=== PATIENT | male | born 1980 | race Caucasian/White ===

== ENCOUNTER → 2017-04-13 | Outpatient (CLI) | payer BC ==
[~2017-04-13] MED LIST: ATV/1 PO; CYCL10TA6 PO; MELA5CAP PO; ONDA8TAB12 PO; RANI300T PO; TRAM-10 PO
--- NOTE | 2017-04-13 09:16 | DIAGNOSTIC IMAGING REPORT ---
GI SERIES W/AIR ROUTINE CLINICAL HISTORY: 29-year-old male with history of dysphasia, sticking sensation in the upper esophagus when swallowing for 2 months, globus sensation, recent EGD normal. TECHNIQUE: A standard air contrast upper GI series was performed. Spot images of the esophagus and stomach were obtained in multiple obliquities both upright and prone. COMPARISON: None. FINDINGS: The patient swallowed barium without difficulty. The esophagus is structurally normal without evidence of intrinsic or extrinsic mass. The esophageal mucosal pattern is normal. No gastroesophageal reflux was observed. The gastroesophageal junction distends normally. The stomach is normal in configuration and demonstrates normal distensibility. No evidence of hiatal hernia. No mass or ulceration is identified. There was no evidence of gastritis. The duodenal bulb and sweep are unremarkable. Fluoroscopy dosage (mGy): Not available. Fluoroscopy time: 2.2 minutes. Number of fluoroscopic spot images: 21. IMPRESSION: Normal upper gastrointestinal fluoroscopic evaluation. Electronically signed by: Edwar Montoya M.D. 04/13/2017 9:14 AM Dictated Date/Time: 04/13/2017 9:13 AM
== END | disposition home or self-care (01) ==
LOC: C.RAD 08:41
PROVIDERS: ATTEND Physician Assistant
DX: R13.10 Dysphagia, unspecified (principal)

== ENCOUNTER 2024-08-09 05:51 | Observation (INO) ==
--- NOTE | 2024-07-13 13:28 | Anesthesiology Consultation ---
Date of Service July 13, 2024 Assessment & Plan (1) Encounter for pre-operative examination: Plan - Case discussed in detail with Dr. Sanchez who advised patient is acceptable to proceed, not requiring additional evaluation. - cardiology office visit 10/26/23: "...congenitally bicuspid aortic valve...feeling relatively well from a cardiac standpoint...palpitations. Zio monitoring in September 2022 with multiple event markers correlating with normal rhythm, sinus tachycardia, and sensed atrial ectopy only...resting echocardiography this summer. SBE prophylaxis..." Chart Review Chart Review: Acceptable Risk for Surgery and Patient seen in Pre Admission Testing Teaching & Discussion Pre-Anesthesia Teaching/Discussion Notes: Instructed NPO after midnight before surgery, except medications with 15 cc of water. Medication instructions provided according to the PAT guidelines. History Surgery Operation Date: 08/09/24 11:45 Proposed Procedures p C5-C6, C6-C7 Cervical Artificial Disc Arthroplasty - Rajesh Ha MD Height/Weight Height: 6 ft Weight: 80.3 kg Allergies Allergy/AdvReac Type Severity Reaction Status Date / Time adhesive Allergy Intermediate Blisters/Ra Verified 07/04/24 11:52 sh SULFA Allergy Severe Anaphylaxis Uncoded 07/04/24 11:52 Medications Home Medications Medication Instructions Recorded Confirmed Last Taken No Known Home Medications 07/04/24 07/04/24 Unknown Past Medical History Medical History (Updated 07/13/24 @ 14:34 by Tammie Kemp PA-C) Bicuspid aortic valve [facility] (possibly switching to [facility]) - Yearly Echo Bilateral carpal tunnel syndrome Bone marrow disorder Pt denies - possibly in 2013 d/t illness [facility]. Patient has never heard anything. Cervical radiculopathy Full ROM Degenerative disc disease, cervical Hx of chest pain entered into EMR 2013, no current issues at this time Rosacea Thyroid nodule Tobacco use disorder Patient denies h/o stroke, seizures, heart attack, heart failure, DM, HTN, blood clots/DVTs or blood transfusions. Exercise / Class Metabolic Activity III < 4 Walking/Shop/Light housework (denies chest discomfort or shortness of breath with usual activities) Past Surgical History Surgical History H/O arthroscopy of shoulder Right shoulder Hx of biopsy Thyroid - Benign Hx of colonoscopy Hx of esophagogastroduodenoscopy Hx of wisdom tooth extraction Past Anesthesia History No Hx of Anesthesia Complications and No Family Hx of Anesthesia Complications History of PONV No Hx of PONV and No Hx of Motion Sickness Social History Smoking Status: Never smoker Do You Dip or Chew Tobacco: No Hx Alcohol Use: Yes alcohol intake frequency: other (several beers once a month with friends) Hx Substance Use: Yes substance use type: marijuana Substance Use Type Other:: Smoke/Vape - Advised Last Used Substance: Unknown Review of Systems Patient denies chest pain, shortness of breath, dyspnea on exertion, snoring, witnessed apneas, reflux, fever, chills, cough, wheezing, or palpitations. Physical Exam Vital Signs Vitals BP 121/79 P 63 TEMP 98.5 SP02 98% on RA RESP 18 Physical Patient resting comfortably in chair in no acute distress, alert and oriented, responding appropriately throughout visit Full cervical extension range of motion without pain TMD 3.5 finger breadths Mallampati Score 3 Dentition: several chipped teeth; denies loose teeth, caps/crowns, implants or bridges Lungs: normal respiratory effort. Good air movement, clear throughout to auscultation, no adventitious breath sounds Cardiac: regular rate and rhythm, no murmurs noted Carotid arteries: negative bruit bilat Lab Results Anesthesia Preop Results Results Anesthesia Widget: WBC 7.82 K/ul (4.8-10.8) 07/13/24 Hgb 14.9 g/dl (14.0-18.0) 07/13/24 Hct 43.9 % (42.0-52.0) 07/13/24 Plt 267 K/uL (130-400) 07/13/24 Na 139 mmol/L (136-145) 07/13/24 K 4.3 mmol/L (3.5-5.1) 07/13/24 Cl 106 mmol/L (98-107) 07/13/24 CO2 30 mmol/L (21-32) 07/13/24 BUN 14 mg/dl (6-23) 07/13/24 Creat 0.91 mg/dl (0.6-1.4) 07/13/24 Glucose Level 76 mg/dl (70-99(Fasting)) 07/13/24 PT 10.5 Seconds (9.0-12.0) 07/13/24 PTT 32 Seconds (21-31) H 07/13/24 INR 1.0 (0.9-1.1) 07/13/24 Blood Type O Positive 07/13/24 Antibody Screen NEGATIVE 07/13/24 Testing Electrocardiogram Date: 01/20/24 NSR with sinus arrhythmia, rate 80 bpm Septal infarct, age undetermined No significant change vs 08/27/2013 EKG Chest X-Ray Date: 07/13/24 No acute chest disease. Echocardiogram Date: 01/06/24 EF 60-64% Normal LV wall motion Congenitally bicuspid aortic valve, open normally Mild aortic regurgitation with an eccentric jet directed towards the base of the anterior mitral valve leaflet Mild mitral regurgitation Mild tricuspid regurgitation Borderline enlarged proximal ascending thoracic aorta 3.9 cm Cervical Spine Date: 07/10/24 1. Mildly motion degraded exam with discogenic degeneration as above, not significantly changed compared to the 02/07/2024 study. 2. [id number] bilateral foraminal narrowing at C6-C7. 3. No high-grade central canal stenosis. 4. Normal signal of the cervical spinal cord. 5. Midline posterior fossa arachnoid cyst versus maricruz cisterna magna measures 5 cm.
[2024-08-09] MEDS: ACETAMINOPHEN 500 MG TAB PO SCH (06:30)
[2024-08-09] MEDS: GABAPENTIN 900 MG DOSE PO SCH (06:30)
[2024-08-09] MEDS: LR 15ML/HR IV SCH (06:31)
[2024-08-09] MEDS: LR 60ML/HR IV SCH (06:31)
[2024-08-09] MEDS ORDERED: MIDAZOLAM HCL 1 MG/ML 2ML VIAL ONE (07:02)
[2024-08-09] MEDS ORDERED: fentaNYL citrate PF 100 MCG/2 ML VIAL ONE (07:03)
--- NOTE | 2024-08-09 07:06 | History & Physical Bridge Note ---
Date of Service August 09, 2024 History & Physical Bridge Note I have examined the patient, reviewed the History & Physical and in the interval since the performance of the History & Physical I have noted the following changes of clinical significance: no changes noted
[2024-08-09] MEDS ORDERED: ROCURONIUM BROMIDE 10 MG/ML 5 ML VIAL IV ONE ×3 (07:10→09:38)
[2024-08-09] MEDS ORDERED: ONDANSETRON INJ 2 MG/ML 2 ML VIAL ONE (07:10)
[2024-08-09] MEDS ORDERED: LIDOCAINE 2% 2 ML VIAL/AMP(20MG/ML) INFIL ONE (07:10)
[2024-08-09] MEDS ORDERED: DEXAMETHASONE SOD INJ 4 MG/ML VIAL ONE (07:10)
[2024-08-09] MEDS ORDERED: PROPOFOL IV EMULSION 10 MG/ML 20 ML VIAL IV ONE ×2 (07:10)
[2024-08-09] MEDS ORDERED: HYDROmorphone INJ 1 MG/ML SYRINGE IV PRN (07:18)
[2024-08-09] MEDS ORDERED: ePHEDrine sulfate 50 MG/ML AMP IV PRN (07:18)
[2024-08-09] MEDS ORDERED: HYDROmorphone INJ 2 MG/ML SYR/VIAL IV PRN (07:18)
[2024-08-09] MEDS ORDERED: ATROPINE SULFATE 0.1 MG/ML 10ML SYR IV PRN (07:18)
[2024-08-09] MEDS ORDERED: fentaNYL citrate PF 100 MCG/2 ML VIAL IV PRN (07:18)
[2024-08-09] MEDS ORDERED: PROMETHAZINE HCL 6.25 MG in SODIUM CHLORIDE 0.9% 50 ML IV PRN (07:18)
[2024-08-09] MEDS ORDERED: PHENYLEPHRINE HCL 10 MG/ML VIAL ONE (07:18)
[2024-08-09] MEDS: ceFAZolin 2000MG 2,000 MG/15 ML SYR IV SCH (08:00)
[2024-08-09] MEDS ORDERED: REMIFENTANIL HCL 1 MG VIAL IV ONE (08:09)
[2024-08-09] MEDS ORDERED: HYDROmorphone INJ 2 MG/ML SYR/VIAL ONE (09:02)
[2024-08-09] MEDS ORDERED: GLYCOPYRROLATE 0.2 MG/ML VIAL ONE (10:57)
[2024-08-09] MEDS ORDERED: NEOSTIGMINE METHYLSULFATE 1 MG/ML 10ML VIAL ONE (10:57)
[2024-08-09] MEDS: THROMBIN 5000 UNITS KIT ONE (10:59)
[2024-08-09] MEDS: VANCOMYCIN HCL 1000MG/20ML VIAL ONE (10:59)
[2024-08-09] MEDS: GELATIN SPONGE 12-7MM ONE (10:59)
--- NOTE | 2024-08-09 11:07 | Post Operative Brief Note ---
PG Immediate Post Op with CF Date of Surgery August 09, 2024 Pre & Post Diagnosis Operation Date: 08/09/24 07:30 Pre-Op Diagnosis: Cervical Stenosis of Spine, Cervical Radiculopathy Post-Op Diagnosis: Cervical Stenosis of Spine, Cervical Radiculopathy I identified the patient and participated in the time-out.: Yes Procedure Operation Date: 08/09/24 07:30 Actual Procedures p C5-C6, C6-C7 Cervical Artificial Disc Arthroplasty(Not Applicable) - Rajesh Ha MD Surgeon Rajesh Ha MD Urgent Care Nurse Practitioner none Estimated Blood Loss 10 Findings Consistent with Post-Op Diagnosis Specimens Specimen Description: none Drains Feng Catheter
[2024-08-09] MEDS ORDERED: METOCLOPRAMIDE HCL INJ 5 MG/ML 2 ML VIAL IV PRN (11:31)
[2024-08-09] MEDS ORDERED: ONDANSETRON 4 MG OD TAB PO PRN (11:31)
[2024-08-09] MEDS ORDERED: bisacodyL 10 MG SUPP PR PRN (11:31)
[2024-08-09] MEDS ORDERED: dexAMETHasone 8 MG in SYRINGE 0 ML IV PRN (11:31)
[2024-08-09] MEDS ORDERED: diphenhydrAMINE Capsule 25 MG CAP PO PRN (11:31)
[2024-08-09] MEDS ORDERED: LORazepam 0.5 MG TAB PO PRN (11:31)
[2024-08-09] MEDS ORDERED: HYDROmorphone INJ 0.5 MG/0.5 ML SYR IV PRN (11:31)
[2024-08-09] MEDS ORDERED: DO NOT ADMINISTER FLU VACCINE PRN (11:31)
[2024-08-09] MEDS ORDERED: SOD PHOSPHATE/SOD BIPHOSPHATE ENEMA 132 ML BTL PR PRN (11:31)
[2024-08-09] MEDS ORDERED: NALOXONE HCL 0.4 MG/1 ML VIAL/CARP IV PRN (11:31)
[2024-08-09] MEDS ORDERED: MAGNESIUM HYDROXIDE SUSP 30 ML UDC PO PRN (11:31)
[2024-08-09] MEDS ORDERED: hydrOXYzine HCl 25 MG TAB PO PRN (11:31)
[2024-08-09] MEDS ORDERED: ALUMINUM/MAGNESIUM SUSP 30 ML UDC PO PRN (11:31)
[2024-08-09] MEDS ORDERED: FAMOTIDINE 20 MG TAB PO PRN (11:31)
[2024-08-09] MEDS ORDERED: DO NOT ADMINISTER PNEUMOCOCCAL VACCINE PRN (11:31)
[2024-08-09] MEDS ORDERED: RACEPINEPHRINE 2.25% NEBU SOLN 0.5 ML VIAL INH PRN (11:31)
[2024-08-09] MEDS ORDERED: ONDANSETRON INJ 2 MG/ML 2 ML VIAL IV PRN (11:31)
[2024-08-09] MEDS ORDERED: ACETAMINOPHEN 1,000 MG/100 ML VIAL IV PRN (11:31)
[2024-08-09] MEDS ORDERED: LORazepam 2 MG/1 ML VIAL IV PRN (11:31)
--- NOTE | 2024-08-09 11:54 | Fluoroscopy Report ---
FL cervical 2-3V CLINICAL HISTORY: C5-C7 Arthroplasty COMPARISON STUDY: MRI cervical spine 07/10/2024 FLUOROSCOPY TIME: 114.4 seconds FLUOROSCOPY IMAGES: 13 EXPOSURE DOSE: 12.32 mGy FINDINGS: Anterior approach two level discectomy noted at what appears to be the C5-C6 and C6-C7 leve ls. Mild multilevel intervertebral disc space narrowing, spondylitic spurring and facet arthrosis. En dotracheal tube noted. No unexpected opaque foreign bodies. IMPRESSION: Fluoroscopic assistance as above. ACT 112: Negative or not required by law. Electronically signed by: Tyrone Lin M.D. 08/09/2024 11:53 AM
[2024-08-09] MEDS: ONDANSETRON INJ 2 MG/ML 2 ML VIAL IV PRN (11:57)
--- NOTE | 2024-08-09 12:03 | Anesthesiology Progress Note ---
Date of Service August 09, 2024 Anesthesia Post Procedure Vital Signs Vital Signs: Temp Pulse Pulse Resp BP Pulse Ox O2 Del Method 08/09/24 11:55 83 15 157/77 H 99 Oxymask 08/09/24 11:45 78 23 158/84 H 100 Oxymask 08/09/24 11:35 92 H 19 161/93 H 100 Oxymask 08/09/24 11:26 36 C L 90 16 159/93 H 99 Oxymask 08/09/24 06:14 37.0 C 69 20 152/84 H 97 Room Air O2 Flow Rate 08/09/24 11:55 2 08/09/24 11:45 10 08/09/24 11:35 10 08/09/24 11:26 10 08/09/24 06:14 Transfer of Care Handoff Completed per policy Notes Mental Status: alert / awake / arousable Patient Amnestic to Procedure: Yes Nausea / Vomiting: adequately controlled Pain: adequately controlled Airway Patency, RR, SpO2: stable & adequate BP & HR: stable & adequate Hydration State: stable & adequate Anesthetic Complications: no major complications apparent and Pt Satisfied with anesthetic care
[2024-08-09 12:32] LABS: BUN Creatinine Ratio 12.2 (10-20); Calcium 8.9 mg/dl (8.6-10.3); Creatinine Clr Calc Pharmacy 104.5 ml/min; Potassium 3.9 mmol/L (3.5-5.1)
[2024-08-09] MEDS: SODIUM CHLORIDE 0.9% 50 ML BAG ONE (13:37)
[2024-08-09] MEDS: PROMETHAZINE HCL INJ 25 MG/ML 1 ML VIAL ONE (13:37)
[2024-08-09] MEDS: PROMETHAZINE 12.5 MG/50.5 ML BAG IV PRN (13:55)
[2024-08-09] MEDS: HYDROCODONE/ACETAMOPHEN 5/325MG TAB PO PRN (15:37)
[2024-08-09] MEDS: ceFAZolin 1000MG 1,000 MG/7.5 ML SYR IV SCH (17:03)
[2024-08-09] MEDS: ACETAMINOPHEN 500 MG TAB PO PRN (18:43)
[2024-08-09] MEDS: DOCUSATE SODIUM/SENNA 50/8.6MG TAB PO SCH (20:43)
[2024-08-10 06:09] LABS: Basophils # (auto) 0.01 K/uL (0.00-0.20); Basophils % (auto) 0.1 %; Eosinophils # (auto) 0.06 K/uL (0.00-0.50); Eosinophils % (auto) 0.4 %; Hematocrit (blood only) 40.2 % (42.0-52.0); Hemoglobin 13.8 g/dl (14.0-18.0); Immature Granulocytes # (auto) 0.08 K/uL (0.01-0.20); Immature Granulocytes % (auto) 0.5 %; Lymphocytes # (auto) 1.94 K/uL (1.20-3.40); Lymphocytes % (auto) 11.8 %; Mean Corpuscular Hemoglobin 29.1 pg (25.0-34.0); Mean Corpuscular Hgb Conc 34.3 g/dL (32.0-36.0); Mean Corpuscular Volume 84.6 fL (80.0-100.0); Mean Platelet Volume 10.9 fL (9.4-12.4); Monocytes # (auto) 1.51 K/uL (0.11-0.59); Monocytes % (auto) 9.2 %; Neutrophils # (auto) 12.83 K/uL (1.40-6.50); Platelet Count 259 K/uL (130-400); RDW Standard Deviation 36.5 fL (36.4-46.3); Red Blood Count 4.75 M/uL (4.70-6.10); White Blood Count 16.43 K/ul (4.8-10.8)
[2024-08-10 06:27] VITALS: BP 135/75; TEMP 97.9; O2SAT 99
[2024-08-10] MEDS: POLYETHYLENE (MIRALAX) 17 GM PACK PO SCH (06:29)
[2024-08-10 07:19] VITALS: PULSE 93; RESP 16
--- NOTE | 2024-08-10 09:07 | Orthopedic Progress Note ---
Date of Service August 10, 2024 Subjective Patient postop day 1 from anterior cervical decompression and artificial disc replacement at C5-6 and C6-7, overall doing well has minimal axial symptomatology, and notes upper extremity symptoms improved versus preoperative symptoms. Incision site is unremarkable no drainage noted, motor intact in the upper extremities. Impression/plan: Postop day 1 from two-level artificial disc replacement, overall net improvement preoperative symptoms. We will discharge the patient home and he will follow-up in 2 weeks time, dressing and shower instructions were given, prescription for tramadol will be sent to his pharmacy. Review of Systems All systems reviewed & are unremarkable except as noted in HPI & below. Physical Exam . Results & Data Results & Data Laboratory Results . Diagnostic Findings . PG Care Time/CCT Total # of Minutes Spent Total Time Spent with Patient: Total time spent is greater than 50% in coordination of care (as documented) at patient's floor/unit and/or counseling patient: Coding Level of Care Code 03095 Post Operative Follow-Up
--- NOTE | 2024-08-10 15:58 | Operative Report ---
PG Post Operative Report Pre & Post Diagnosis Operation Date: 08/09/24 07:30 Pre-Op Diagnosis: Cervical Stenosis of Spine, Cervical Radiculopathy Post-Op Diagnosis: Cervical Stenosis of Spine, Cervical Radiculopathy I identified the patient and participated in the time-out.: Yes Procedure Operation Date: 08/09/24 07:30 Actual Procedures p C5-C6, C6-C7 Cervical Artificial Disc Arthroplasty(Not Applicable) - Rajesh Ha MD Surgeon Rajesh Ha MD Roof Tile Layer none Estimated Blood Loss 10 Findings Consistent with Post-Op Diagnosis Specimens None Description of Procedure 1. C5-6 anterior cervical decompression, artificial disc replacement, Mobi-C 17 x 19 x 5 mm. ([id number]) 2. C6-7 anterior cervical decompression, artificial disc replacement, Mobi-C 17 x 19 x 5 mm. ([id number]) Patient was taken operating room and after adequate anesthesia was carefully positioned supine on the OSI flattop table. Preprepped was performed of the cervical region followed by then positioning the patient for an anterior approach to the C5-6 and C6-7 levels. Fluoroscopy was used to josé the location of the incision followed by then prepped and draped. Transverse incision was then performed on the left side of the cervical spine and advanced down to the anterior aspect of the cervical spine routine fashion on the medial border of the sternocleidomastoid to the anterior aspect confirmed fluoroscopically at C5- 6 and C6-7. Retractors were then set, I used fluoroscopy to guide distractor pins at C5 and C6. I began the procedure at C5-6 with anterior annulotomy followed by a thorough discectomy with removal of the disc material out to the uncinates and removal of cartilage from the endplates. Posteriorly the decompression was performed with using the high-speed bur to thin and remove the overhanging spondylosis followed by decompression of the canal with removal of the remaining longitudinal ligament and annulus decompressing down to the dura across to the uncinates on both sides with thorough decompression. Trials were then inserted selecting the size artificial disc replacement as noted, this was then tapped into position with excellent position on AP and lateral views using fluoroscopy. The distractor pin was removed from C5, Floseal and bone wax was applied, and it was then reinserted at the C7 level for the procedure at the C6- 7 level. Retractors were then reset, anterior annulotomy was performed along with a thorough decompression in a similar fashion as noted at the C5-6 level. With completion of the decompression across the posterior aspect of the disc space after the uncinates on both sides, I then went through trials selecting same size artificial disc replacement at this level. This was then inserted in the same fashion with excellent position no issues noted. Final images were then obtained, distractor pins have been removed Floseal and bone wax applied. The operative site was irrigated vancomycin powder was placed along with closure using 3-0 Vicryl sutures, Steri-Strips and sterile dressing. Patient tolerated procedure well was taken recovery room satisfactory condition. I attest to the content of the Intraoperative Record and any orders documented therein. Any exceptions are noted below.
--- NOTE | 2024-08-15 14:32 | Discharge Summary ---
Date of Service August 15, 2024 Admission HPI (Per Admitting) cervical stenosis Principal Diagnosis Same as "Discharge Diagnosis" noted below under Discharge Instructions. Discharge Exam . Discharge Data Procedures Performed Operation Date: 08/09/24 07:30 Actual Procedures p C5-C6, C6-C7 Cervical Artificial Disc Arthroplasty(Not Applicable) - Rajesh Ha MD Ordered Studies 08/09/24 06:00 FL cervical 2-3V Routine Hospital Course (1) Cervical stenosis of spine: surgery (2) Cervical radiculopathy: PG Care Time/CCT Total # of Minutes Spent Total Time Spent with Patient: Total time spent is greater than 50% in coordination of care (as documented) at patient's floor/unit and/or counseling patient: Discharge Plan Discharge Items Patient Disposition: Home - Self-Care Reason For Visit: Cervical Stenosis of Spine, Cervical Radiculopathy Discharge Diagnosis: C5-C6, C6-C7 Cervical Artificial Disc Arthroplasty Activity: Per Instructions section Lifting: No more than 10 pounds Non-emergency contact: Surgeon Call non-emergency contact if: you have any medication questions, your pain is not controlled, you have a fever, your wound has increased redness, your wound has increased drainage and your wound pain has increased Follow-up/Referrals: Ruchi Dahl PA-C [Primary Care Provider] - Diet: Regular Addtl Attending Provider Instructions: No lifting over 10 pounds. Change dressing in 2 days. Okay to shower in 3 days. Try to avoid direct water pressure on the incision. Pending Studies at Discharge: No Stand[facility]Alone [facility] Medications and DC Order Prescriptions: New tramadol 50 mg tablet 50 - 100 mg PO BID PRN (Reason: pain) Qty: 20 0RF Discharge Orders: Discharge Order (Routine); Ordered 08/10/24 Ordered By: Christiano Ventura Admission Data Admit Date/Time: 08/09/24 11:31 Attending Provider: Rajesh Ha Admit Provider: Rajesh Ha Primary Care Provider: Ruchi Dahl Other Interventions: Discharge Summary Assessment (RN) Last Done: 08/10/24 10:52
== END 2024-08-10 11:30 | disposition home or self-care (01) ==
LOC: 3E 05:51 → ASU 05:51